=== PATIENT | female | born 1950 | race Caucasian/White ===

== ENCOUNTER 2016-12-24 08:53 | Emergency (ER) | payer OTHER ==
[2016-12-24 09:54] LABS: BASOPHIL 0.3 % (0-2); EOSINOPHIL 2.2 % (0-7); HCT 38.1 % (37.0-47.0); HGB 12.6 g/dl (12.5-16.0); LYMPHOCYTE 29.8 % (15-48); MCH 31.4 pg (25.0-31.0); MCHC 33.1 g/dL (32.0-36.0); MPV 10.8 fL (6.0-9.5); NEUTROPHIL 57.7 % (41-80); PLT 226 K/uL (150-400); RBC 4.01 M/uL (4.20-5.40); RDW 12.8 % (11.5-14.0); WBC 6.4 K/uL (4.0-10.5)
[2016-12-24 10:07] LABS: TROPONIN T < 0.010 ng/mL
[2016-12-24 10:09] LABS: ALBUMIN 3.4 g/dL (3.4-4.8); BILIRUBIN - TOTAL 0.2 mg/dL (0.1-1.0); CREATININE 1.1 mg/dL (0.5-1.0); GLOBULIN (CALCULATION) 2.7 g/dL (2.2-4.2); TOTAL PROTEIN 6.1 g/dL (6.4-8.3)
[2016-12-24 10:10] LABS: PRO-BNP 148 pg/mL (0-125)
== END 2016-12-24 10:55 | disposition home or self-care (01) ==
LOC: FER 08:53
PROVIDERS: Emergency Medicine
DX: R06.02 Shortness of breath (principal); M79.661 Pain in right lower leg; I10 Essential (primary) hypertension; E03.9 Hypothyroidism, unspecified; Z86.711 Personal history of pulmonary embolism; Z86.718 Personal history of other venous thrombosis and embolism; Z82.49 Family history of ischemic heart disease and other diseases of the circulatory system; Z79.01 Long term (current) use of anticoagulants
CPT/HCPCS: 36415; 36600; 71010; 80053; 82803; 83880; 84484; 85025; 85379; 93005

== ENCOUNTER → 2021-06-10 | Day surgery (SDC) | payer OTHER ==
[~2021-06-10] VITALS: Ht 154.9 cm; Wt 104.3 kg
[~2021-06-10] MED LIST: BENAZEPRIL HCL40 MG PO; CITALOPRAM HBR20 MG PO; FAMOTIDINE40 MG PO; HYDROCHLOROTH12.5 MG PO; LEVOTHYROXINE112 MCG PO; MAG-OXIDE 400M400 MG PO; PROPRANOLOL HCL60 MG PO; SIMVASTATIN10 MG PO; TRILOGY; VITAMIN D PO
[2021-06-10 14:02] LABS: BUN/CREAT RATIO (CALC) 22.6 RATIO; CREATININE 1.37 mg/dL (0.51-0.95); POTASSIUM 4.2 mmol/L (3.5-5.1)
== END | disposition home or self-care (01) ==
LOC: FAS 12:17
PROVIDERS: Anesthesiology
DX: Z45.2 Encounter for adjustment and management of vascular access device (principal); Z85.43 Personal history of malignant neoplasm of ovary; E78.5 Hyperlipidemia, unspecified; E03.9 Hypothyroidism, unspecified; E55.9 Vitamin D deficiency, unspecified; Z80.0 Family history of malignant neoplasm of digestive organs; Z87.891 Personal history of nicotine dependence; R00.1 Bradycardia, unspecified; K21.9 Gastro-esophageal reflux disease without esophagitis; G47.30 Sleep apnea, unspecified
CPT/HCPCS: 36415; 80048; 93005; J1100; J1885; J2250; J2405; J2704; J3010; J7120

== ENCOUNTER → 2022-03-03 | Day surgery (SDC) | payer OTHER ==
[~2022-03-03] VITALS: Ht 154.9 cm; Wt 102.0 kg
[~2022-03-03] MED LIST changes: +PROLIA60 MG/1 ML IM; +VENTOLIN HFA18 GM INH; +VITAMIN B-1250 MG PO; +XALATAN2.5 ML OU
== END | disposition home or self-care (01) ==
LOC: FAS 10:29
DX: R15.9 Full incontinence of feces (principal); K57.30 Diverticulosis of large intestine without perforation or abscess without bleeding; I10 Essential (primary) hypertension; E78.00 Pure hypercholesterolemia, unspecified; E03.9 Hypothyroidism, unspecified; K21.9 Gastro-esophageal reflux disease without esophagitis; Z88.8 Allergy status to other drugs, medicaments and biological substances; Z88.1 Allergy status to other antibiotic agents; Z91.010 Allergy to peanuts; Z80.0 Family history of malignant neoplasm of digestive organs; Z91.048 Other nonmedicinal substance allergy status; Z85.43 Personal history of malignant neoplasm of ovary
CPT/HCPCS: J1610; J2250; J2704; J7120